=== PATIENT | female | born 1955 | race Caucasian/White ===

== ENCOUNTER 2021-11-16 01:20 | Inpatient (IN) | payer MEDICARE ==
[~2021-11-16] VITALS: Ht 167.6 cm; Wt 92.5 kg
[2021-11-16] MEDS ORDERED: IBUPROFEN 600MG TAB PO ONE (02:10)
[2021-11-16 02:19] LABS: BASO % 0.2 % (0.0-1.0); EOS # 0.1 10^3/uL (0.0-0.5); EOS % 0.5 % (0.0-3.0); HEMATOCRIT 35.3 % (36.0-47.0); HEMOGLOBIN 10.9 g/dl (12.0-15.5); LYMPH # 0.7 10^3/uL (1.5-5.0); LYMPH % 3.2 % (24.0-44.0); MEAN CORPUSCULAR HEMOGLOBIN 27.6 pg (27.0-33.0); MEAN CORPUSCULAR HGB CONC 30.9 g/dl (32.0-36.5); MEAN CORPUSCULAR VOLUME 89.4 fl (80.0-96.0); MONO % 7.6 % (2.0-8.0); NEUTROPHILS # 19.4 10^3/uL (1.5-8.5); NEUTROPHILS % 87.4 % (36.0-66.0); PLATELET COUNT, AUTOMATED 352 10^3/uL (150-450); RED BLOOD COUNT 3.95 10^6/uL (4.00-5.40); WHITE BLOOD COUNT 22.2 10^3/uL (4.0-10.0)
[2021-11-16 02:31] LABS: INR 1.13; PROTHROMBIN TIME 14.9 SECONDS (12.7-14.5)
[2021-11-16 02:32] LABS: PARTIAL THROMBOPLASTIN TIME 30.9 SECONDS (25.9-37.0)
[2021-11-16 02:37] LABS: MONO # 1.7 10^3/uL (0.0-0.8)
[2021-11-16 02:48] LABS: ALBUMIN 3.1 GM/DL (3.2-5.2); BILIRUBIN,DIRECT 0.1 MG/DL (0.0-0.2); BILIRUBIN,TOTAL 0.3 MG/DL (0.2-1.0); CALCIUM LEVEL 10.5 MG/DL (8.8-10.2); CREATININE FOR GFR 1.53 MG/DL (0.55-1.30); GLOMERULAR FILTRATION RATE 36.3 (>45); POTASSIUM SERUM 4.7 MEQ/L (3.5-5.1); TOTAL PROTEIN 6.4 GM/DL (6.4-8.2)
[2021-11-16] MEDS ORDERED: ISOVUE-370 76% 100ML VIAL As Ordered ONE (03:28)
[2021-11-16] MEDS ORDERED: NS 1,000 ML IV ONE (04:00)
[2021-11-16] MEDS ORDERED: PIPERACILLIN/TAZOBACTAM SOD 3.375 GM in D5W MINI-BAG PLUS 50 ML IV ONE (04:10)
[2021-11-16 04:57] LABS: C REACTIVE PROTEIN QUANTITATIV 4.09 MG/DL (0.00-0.30)
[2021-11-16] MEDS ORDERED: MAGN400T33 PO (05:41)
[2021-11-16] MEDS ORDERED: DICY10CA13 PO (05:41)
[2021-11-16] MEDS ORDERED: VENTAER INH (05:41)
[2021-11-16] MEDS ORDERED: SPIR-10 PO (05:41)
[2021-11-16] MEDS ORDERED: GLIP10TA6 PO (05:41)
[2021-11-16] MEDS ORDERED: META0.52 PO (05:41)
[2021-11-16] MEDS ORDERED: FLUTISP NARES (05:41)
[2021-11-16] MEDS ORDERED: BREO1INH INH (05:41)
[2021-11-16] MEDS ORDERED: PROB250C PO (05:41)
[2021-11-16] MEDS ORDERED: ELIQ5TAB PO (05:41)
[2021-11-16] MEDS ORDERED: FURO40TA2 PO (05:41)
[2021-11-16] MEDS ORDERED: NYST10CR TOP (05:41)
[2021-11-16] MEDS ORDERED: IPRA0.00 INH (05:41)
[2021-11-16] MEDS ORDERED: LISI2.5T9 PO (05:41)
[2021-11-16] MEDS ORDERED: METF10004 PO (05:41)
[2021-11-16] MEDS ORDERED: PRED10TA2 PO (05:41)
[2021-11-16] MEDS ORDERED: ALBU8.5H INH (05:41)
[2021-11-16] MEDS ORDERED: CYAN100050 PO (05:41)
[2021-11-16] MEDS ORDERED: NS 1,740 ML in IV 1 EA IV ONE (06:10)
[2021-11-16] MEDS ORDERED: META1POW PO (07:40)
[2021-11-16] MEDS ORDERED: LISI5TAB11 PO (07:40)
[2021-11-16] MEDS ORDERED: VITS42.53 TOP (07:48)
[2021-11-16] MEDS ORDERED: HOME MED LIST COMPLETE! XX SCH (07:50)
[2021-11-16] MEDS ORDERED: CEFTAROLINE FOSAMIL 600 MG in D5W MINI-BAG PLUS 50 ML IV SCH (08:15)
[2021-11-16] MEDS ORDERED: ACETAMINOPHEN TAB 650MG DOSE (2X325MG) PO PRN (08:15)
[2021-11-16] MEDS ORDERED: predniSONE 10 MG TAB PO SCH (09:00)
[2021-11-16] MEDS: METAMUCIL (PSYLLIUM) PACKET PO SCH (09:00)
[2021-11-16] MEDS ORDERED: CEFTAROLINE FOSAMIL 400 MG in D5W MINI-BAG PLUS 50 ML IV SCH (10:00)
[2021-11-16] MEDS: INSULIN LISPRO (NovoLOG) PER UNIT SC SCH ×3 (12:00→20:19)
[2021-11-16] MEDS ORDERED: GLUCOSE 4GM CHEW TABLET PO PRN (13:30)
[2021-11-16] MEDS ORDERED: DEXTROSE 50% 50 ML SYRINGE IV PRN (13:30)
[2021-11-16] MEDS ORDERED: GLUCAGON INJ 1MG VIAL SC PRN (13:30)
[2021-11-16 17:58] VITALS: BP 114/71
[2021-11-16] MEDS: APIXABAN 5 MG TAB (ELIQUIS) PO SCH ×3 (18:40→20:23)
[2021-11-16] MEDS: glipiZIDE (GLUCOTROL) 5 MG TAB PO SCH (19:21)
[2021-11-16] MEDS: predniSONE 10 MG TAB PO SCH (19:21)
[2021-11-16 20:00] VITALS: BP 116/58
[2021-11-16] MEDS: SYMBICORT 160/4.5MCG INHALER 6GM INH SCH (20:27)
[2021-11-17] VITALS: BP 130/67
[2021-11-17 04:00] VITALS: BP 120/59
[2021-11-17] MEDS: CEFTAROLINE FOSAMIL 400 MG in D5W MINI-BAG PLUS 50 ML IV SCH ×2 (04:29→15:15)
[2021-11-17] MEDS: SYMBICORT 160/4.5MCG INHALER 6GM INH SCH ×2 (07:52→20:02)
[2021-11-17 08:00] VITALS: BP 133/62
[2021-11-17 08:21] LABS: BASO % 0.3 % (0.0-1.0); EOS # 0.2 10^3/uL (0.0-0.5); EOS % 1.6 % (0.0-3.0); HEMATOCRIT 32.3 % (36.0-47.0); HEMOGLOBIN 9.8 g/dl (12.0-15.5); LYMPH # 1.7 10^3/uL (1.5-5.0); LYMPH % 11.8 % (24.0-44.0); MEAN CORPUSCULAR HGB CONC 30.3 g/dl (32.0-36.5); MEAN CORPUSCULAR VOLUME 92.3 fl (80.0-96.0); MONO # 1.3 10^3/uL (0.0-0.8); NEUTROPHILS # 11.1 10^3/uL (1.5-8.5); NEUTROPHILS % 76.4 % (36.0-66.0); PLATELET COUNT, AUTOMATED 317 10^3/uL (150-450); WHITE BLOOD COUNT 14.5 10^3/uL (4.0-10.0)
[2021-11-17 08:40] LABS: CREATININE FOR GFR 1.2 MG/DL (0.55-1.30); POTASSIUM SERUM 4.5 MEQ/L (3.5-5.1)
[2021-11-17] MEDS: METAMUCIL (PSYLLIUM) PACKET PO SCH (09:00)
[2021-11-17] MEDS: APIXABAN 5 MG TAB (ELIQUIS) PO SCH ×2 (09:09→20:44)
[2021-11-17] MEDS: INSULIN LISPRO (NovoLOG) PER UNIT SC SCH ×4 (09:10→20:22)
[2021-11-17] MEDS: predniSONE 10 MG TAB PO SCH (09:10)
[2021-11-17] MEDS: glipiZIDE (GLUCOTROL) 5 MG TAB PO SCH ×2 (09:10→17:44)
[2021-11-17] MEDS: ALBUTEROL SULFATE 2.5 MG/0.5 ML INH NEB SOLN NEB PRN ×2 (15:26→22:55)
[2021-11-17 16:00] VITALS: BP 128/55
[2021-11-17 20:14] VITALS: BP 121/57
[2021-11-17] MEDS ORDERED: ONDANSETRON 4MG/2ML VIAL IV PRN (21:35)
[2021-11-18 04:00] VITALS: BP 131/61
[2021-11-18] MEDS: CEFTAROLINE FOSAMIL 400 MG in D5W MINI-BAG PLUS 50 ML IV SCH (04:52)
[2021-11-18 05:51] LABS: HEMATOCRIT 31.3 % (36.0-47.0); HEMOGLOBIN 9.7 g/dl (12.0-15.5); MEAN CORPUSCULAR HEMOGLOBIN 28.7 pg (27.0-33.0); MEAN CORPUSCULAR VOLUME 92.6 fl (80.0-96.0); PLATELET COUNT, AUTOMATED 304 10^3/uL (150-450); RED BLOOD COUNT 3.38 10^6/uL (4.00-5.40); WHITE BLOOD COUNT 14.6 10^3/uL (4.0-10.0)
[2021-11-18 06:20] LABS: EOSINOPHILS 1 % (0-3); LYMPHOCYTES 11 % (16-44); MONOCYTES 10 % (0-5); NEUTROPHILS 76 % (28-66)
[2021-11-18 06:21] LABS: CALCIUM LEVEL 9.5 MG/DL (8.8-10.2); CREATININE FOR GFR 1.15 MG/DL (0.55-1.30); GLOMERULAR FILTRATION RATE 50.4 (>45); PLATELET ESTIMATE NORMAL (NORMAL); POTASSIUM SERUM 4.5 MEQ/L (3.5-5.1)
[2021-11-18 07:18] VITALS: BP 118/56
[2021-11-18] MEDS: SYMBICORT 160/4.5MCG INHALER 6GM INH SCH ×2 (07:30→19:04)
[2021-11-18] MEDS: INSULIN LISPRO (NovoLOG) PER UNIT SC SCH ×4 (08:26→21:00)
[2021-11-18] MEDS: predniSONE 10 MG TAB PO SCH (08:26)
[2021-11-18] MEDS: APIXABAN 5 MG TAB (ELIQUIS) PO SCH ×2 (08:27→21:34)
[2021-11-18] MEDS: METAMUCIL (PSYLLIUM) PACKET PO SCH (08:27)
[2021-11-18] MEDS: glipiZIDE (GLUCOTROL) 5 MG TAB PO SCH ×2 (08:27→18:21)
[2021-11-18] MEDS: SPIRONOLACTONE 25 MG TAB PO SCH (08:27)
[2021-11-18 08:44] LABS: HEMOGLOBIN A1c 11.5 %
[2021-11-18] MEDS ORDERED: FUROSEMIDE 40MG/4ML VIAL (J1940) IV ONE (10:00)
[2021-11-18] MEDS: SENOKOT S TAB PO SCH (10:24)
[2021-11-18] MEDS: PANTOPRAZOLE 40MG VIAL IV SCH (10:24)
[2021-11-18] MEDS: LEVEMIR (INSULIN DETEMIR) 1 UNITS/0.01ML SC SCH (10:24)
[2021-11-18] MEDS: cefTRIAXone SOD 2 GM in D5W MINI-BAG PLUS 50 ML IV SCH (11:48)
[2021-11-18 15:53] VITALS: BP 111/60
[2021-11-18] MEDS: ALBUTEROL 90 MCG/ACT 8GM HFA INHALER INH PRN ×2 (16:56→22:06)
[2021-11-18 18:20] VITALS: BP 119/63
[2021-11-19 05:30] VITALS: BP 119/62
[2021-11-19 06:06] LABS: BASO # 0.1 10^3/uL (0.0-0.2); BASO % 0.4 % (0.0-1.0); EOS # 0.3 10^3/uL (0.0-0.5); EOS % 2.3 % (0.0-3.0); HEMATOCRIT 30.6 % (36.0-47.0); HEMOGLOBIN 9.4 g/dl (12.0-15.5); LYMPH # 1.3 10^3/uL (1.5-5.0); LYMPH % 9.9 % (24.0-44.0); MEAN CORPUSCULAR HEMOGLOBIN 28.2 pg (27.0-33.0); MEAN CORPUSCULAR HGB CONC 30.7 g/dl (32.0-36.5); MEAN CORPUSCULAR VOLUME 91.9 fl (80.0-96.0); MONO # 1.4 10^3/uL (0.0-0.8); MONO % 10.2 % (2.0-8.0); NEUTROPHILS # 10.1 10^3/uL (1.5-8.5); NEUTROPHILS % 75.9 % (36.0-66.0); PLATELET COUNT, AUTOMATED 317 10^3/uL (150-450); RED BLOOD COUNT 3.33 10^6/uL (4.00-5.40); WHITE BLOOD COUNT 13.2 10^3/uL (4.0-10.0)
[2021-11-19 06:23] LABS: CALCIUM LEVEL 9.5 MG/DL (8.8-10.2); CREATININE FOR GFR 1.09 MG/DL (0.55-1.30); GLOMERULAR FILTRATION RATE 53.6 (>45)
[2021-11-19] MEDS: SYMBICORT 160/4.5MCG INHALER 6GM INH SCH ×2 (08:16→19:58)
[2021-11-19] MEDS: INSULIN LISPRO (NovoLOG) PER UNIT SC SCH ×4 (08:58→20:58)
[2021-11-19] MEDS: LEVEMIR (INSULIN DETEMIR) 1 UNITS/0.01ML SC SCH (08:58)
[2021-11-19] MEDS: SPIRONOLACTONE 25 MG TAB PO SCH (08:59)
[2021-11-19] MEDS: glipiZIDE (GLUCOTROL) 5 MG TAB PO SCH ×2 (08:59→17:54)
[2021-11-19] MEDS: predniSONE 10 MG TAB PO SCH (08:59)
[2021-11-19] MEDS: PANTOPRAZOLE 40MG VIAL IV SCH (08:59)
[2021-11-19] MEDS: SENOKOT S TAB PO SCH (08:59)
[2021-11-19] MEDS: APIXABAN 5 MG TAB (ELIQUIS) PO SCH ×2 (08:59→21:02)
[2021-11-19] MEDS: METAMUCIL (PSYLLIUM) PACKET PO SCH (09:00)
[2021-11-19] MEDS ORDERED: FUROSEMIDE 40MG/4ML VIAL (J1940) IV ONE (11:25)
[2021-11-19] MEDS: cefTRIAXone SOD 2 GM in D5W MINI-BAG PLUS 50 ML IV SCH (12:05)
[2021-11-19] MEDS: ALBUTEROL 90 MCG/ACT 8GM HFA INHALER INH PRN ×2 (13:19→21:16)
[2021-11-19 14:00] VITALS: BP 120/62
[2021-11-20 06:00] VITALS: BP 119/62
[2021-11-20 06:09] LABS: BASO # 0.1 10^3/uL (0.0-0.2); BASO % 0.4 % (0.0-1.0); EOS # 0.4 10^3/uL (0.0-0.5); EOS % 3.2 % (0.0-3.0); HEMATOCRIT 29.9 % (36.0-47.0); HEMOGLOBIN 9.2 g/dl (12.0-15.5); LYMPH # 1.8 10^3/uL (1.5-5.0); LYMPH % 15.8 % (24.0-44.0); MEAN CORPUSCULAR HEMOGLOBIN 28.6 pg (27.0-33.0); MEAN CORPUSCULAR HGB CONC 30.8 g/dl (32.0-36.5); MEAN CORPUSCULAR VOLUME 92.9 fl (80.0-96.0); MONO # 1.1 10^3/uL (0.0-0.8); MONO % 9.7 % (2.0-8.0); NEUTROPHILS % 69.2 % (36.0-66.0); PLATELET COUNT, AUTOMATED 341 10^3/uL (150-450); RED BLOOD COUNT 3.22 10^6/uL (4.00-5.40); WHITE BLOOD COUNT 11.5 10^3/uL (4.0-10.0)
[2021-11-20 06:35] LABS: BLOOD UREA NITROGEN 38 MG/DL (7-18); CALCIUM LEVEL 8.8 MG/DL (8.8-10.2); CARBON DIOXIDE LEVEL 30 MEQ/L (21-32); CHLORIDE LEVEL 103 MEQ/L (98-107); CREATININE FOR GFR 0.94 MG/DL (0.55-1.30); GLOMERULAR FILTRATION RATE > 60.0 (>45); GLUCOSE, FASTING 115 MG/DL (70-100); POTASSIUM SERUM 4.2 MEQ/L (3.5-5.1); SODIUM LEVEL 139 MEQ/L (136-145)
[2021-11-20] MEDS: SYMBICORT 160/4.5MCG INHALER 6GM INH SCH ×2 (07:21→19:47)
[2021-11-20] MEDS: INSULIN LISPRO (NovoLOG) PER UNIT SC SCH ×3 (07:30→17:22)
[2021-11-20] MEDS ORDERED: PRED10TA2 PO (08:04)
[2021-11-20] MEDS ORDERED: CEFD300C41 PO (08:06)
[2021-11-20] MEDS: SENOKOT S TAB PO SCH (08:26)
[2021-11-20] MEDS: SPIRONOLACTONE 25 MG TAB PO SCH (08:27)
[2021-11-20] MEDS: PANTOPRAZOLE 40MG VIAL IV SCH (08:27)
[2021-11-20] MEDS: predniSONE 10 MG TAB PO SCH (08:27)
[2021-11-20] MEDS: APIXABAN 5 MG TAB (ELIQUIS) PO SCH (08:27)
[2021-11-20] MEDS: glipiZIDE (GLUCOTROL) 5 MG TAB PO SCH ×2 (08:27→17:22)
[2021-11-20] MEDS: METAMUCIL (PSYLLIUM) PACKET PO SCH (08:27)
[2021-11-20] MEDS: LEVEMIR (INSULIN DETEMIR) 1 UNITS/0.01ML SC SCH (08:28)
[2021-11-20] MEDS: ALBUTEROL 90 MCG/ACT 8GM HFA INHALER INH PRN ×3 (11:16→19:47)
[2021-11-20] MEDS: cefTRIAXone SOD 2 GM in D5W MINI-BAG PLUS 50 ML IV SCH (11:59)
== END 2021-11-20 19:30 | disposition home or self-care (01) | DRG 871 ==
LOC: M ED 01:20 → M ED INP 08:13 → ENRESERV 16:09 → M PCU 17:56 → M MS5PR 11-18 17:06
PROVIDERS: ADMIT Internal Medicine Nephrology; ATTEND Internal Medicine Nephrology
PROC: B246ZZZ Ultrasonography of Right and Left Heart (ICD-10-PCS; principal; 2021-11-19)
DX: A41.9 Sepsis, unspecified organism (principal); I50.23 Acute on chronic systolic (congestive) heart failure; J96.11 Chronic respiratory failure with hypoxia; L03.116 Cellulitis of left lower limb; N39.0 Urinary tract infection, site not specified; Z66 Do not resuscitate; B96.1 Klebsiella pneumoniae [K. pneumoniae] as the cause of diseases classified elsewhere; E11.622 Type 2 diabetes mellitus with other skin ulcer; I11.0 Hypertensive heart disease with heart failure; J44.9 Chronic obstructive pulmonary disease, unspecified; M06.9 Rheumatoid arthritis, unspecified; M19.90 Unspecified osteoarthritis, unspecified site; M10.9 Gout, unspecified; Z20.822 Contact with and (suspected) exposure to COVID-19; Z79.01 Long term (current) use of anticoagulants; Z79.52 Long term (current) use of systemic steroids; Z79.84 Long term (current) use of oral hypoglycemic drugs; Z79.899 Other long term (current) drug therapy; Z88.1 Allergy status to other antibiotic agents; Z88.2 Allergy status to sulfonamides; Z88.6 Allergy status to analgesic agent; Z88.8 Allergy status to other drugs, medicaments and biological substances; Z91.013 Allergy to seafood; Z91.010 Allergy to peanuts; Z91.040 Latex allergy status; Z91.030 Bee allergy status; Z95.810 Presence of automatic (implantable) cardiac defibrillator; Z87.891 Personal history of nicotine dependence; I48.91 Unspecified atrial fibrillation; K21.9 Gastro-esophageal reflux disease without esophagitis; I50.813 Acute on chronic right heart failure